=== PATIENT | female | born 1960 | race Caucasian/White ===

== ENCOUNTER → 2018-04-07 07:48 | Outpatient (CLI) | payer OTHER, SELFPAY ==
--- NOTE | 2018-04-07 | DI.ECHO.S_ITS ---
[facility] +---------+ : : [address] : [place] : : : : [id number] : : : : Phone: [phone]---------+ Echocardiogram Report + + :Name: ARUN CHAN Study Date: 04/07/2018 Height: 67 in : :[facility] Weight: 325 lb : : Gender: Female BSA: 2.5 m2 : :: 1960 Age: 58 yrs BP: 144/86 mmHg: :Reason For Study: EXERTIONAL CHEST PAIN : :Ordering Physician: : :Héctor Barreto Performed By: Karen Zuniga : + + Interpretation Summary The study quality was technically difficult. The left ventricle is mildly dilated. The ejection fraction is estimated to be 55-60%. The right ventricle grossly appears normal in size with probable normal systolic function. There is mild mitral regurgitation. The aortic valve is not well visualized. The peak aortic velocity is 2.32 m/sec. The aortic valve mean gradient is 9.6 mmHg. There is mild aortic stenosis. Procedure: A two-dimensional transthoracic echocardiogram with color flow and Doppler was performed. There is no prior echocardiogram noted for this patient. A contrast injection of Definity was performed to improve assessment of LV function. The subcostal views were not obtained due to lack of visualization.. The study quality was technically difficult. The patient was in normal sinus rhythm during the exam. Left Ventricle: The left ventricle is mildly dilated. Proximal septal thickening is noted. There is no echo evidence for significant left ventricular outflow tract obstruction. There is no thrombus. The ejection fraction is estimated to be 55-60%. There are no obvious focal wall motion abnormalities noted but poor endocardial definition reduces the sensitivity for the detection of such. Assessment of diastolic parameters suggests a pseudonormalization pattern, consistent with elevated filling pressures. Right Ventricle: The right ventricle grossly appears normal in size with probable normal systolic function. Atria: Both atria are mildly dilated. Mitral Valve: The mitral valve leaflets are slightly calcified. The mitral valve is not well visualized. There is mild mitral regurgitation. Aortic Valve: The aortic valve is not well visualized. The aortic valve is mildly calcified. The peak aortic velocity is 2.32 m/sec. The aortic valve mean gradient is 9.6 mmHg. There is mild aortic stenosis. There is no hemodynamically significant valvular aortic stenosis. No aortic regurgitation is present. Tricuspid Valve: The tricuspid valve is not well visualized. There is trace tricuspid regurgitation. Pulmonary artery pressures cannot be estimated because of the lack of a measurable TR jet velocity. Pulmonic Valve: The pulmonic valve is not well visualized. Great Vessels: The aortic root is normal size. The ascending aorta is at the upper limits of normal in size. The aortic arch is normal in size. The inferior vena cava was not visualized. Pericardium/ Pleura There is no pericardial effusion. MMode/2D Measurements & Calculations LVIDd: 5.5 cm LVOT diam: 2.1 cm LVIDs: 3.9 cm Ao root diam: 3.0 cm FS: 29.4 % Aortic Jxn: 2.6 cm IVSd: 0.92 cm asc Aorta Diam: 3.4 cm LVPWd: 1.1 cm Ao Arch Diam (Prox Trans): 2.8 cm LV hampton. diameter/BSA (cm/m^2): 2.2 LV sys. diameter/BSA (cm/m^2): 1.6 LA A2 area: 20.3 cm2 RA long axis: 5.9 cm LA A4 area: 25.3 cm2 RA area: 21.9 cm2 LA length (vol): 5.3 cm RA vol: 69.2 ml LA vol: 81.4 ml RA : 27.8 ml/m2 LA vol index: 32.7 ml/m2 TAPSE: 2.8 cm Doppler Measurements & Calculations Ao V2 max: 232.5 cm/sec LVOT Max Janes: 122.1 cm/sec Ao V2 mean: 138.1 cm/sec LV V1 max P.0 mmHg Ao max P.6 mmHg LV V1 VTI: 25.7 cm Ao mean P.6 mmHg JAMES(I,D): 1.8 cm2 Ao V2 VTI: 50.0 cm JAMES(V,D): 1.8 cm2 sev ratio: 0.51 JAMES indexed to BSA (cm^2/m^2): 0.71 MV E max janes: 103.2 cm/sec PA V2 max: 92.3 cm/sec MV A max janes: 98.2 cm/sec PA V2 mean: 60.3 cm/sec MV E/A: 1.1 PA mean P.7 mmHg Med Peak E' Janes: 6.7 cm/sec PA Accel Time: 0.14 sec E/E' med: 15.3 Lat Peak E' Janes: 10.5 cm/sec E/E' lat: 9.8 E/e' average: 12.6 MV dec time: 0.21 sec MV P1/2t: 62.2 msec MV P1/2t max janes: 103.8 cm/sec MVA(2t): 3.5 cm2 Reading Physician:GINGER
== END ==
PROVIDERS: Visit Provider Family Medicine
DX: R07.89 Other chest pain (principal)
CPT/HCPCS: 93306; Q9957